=== PATIENT | male | born 1990 | race Caucasian/White ===

== ENCOUNTER 2017-04-24 08:15 | Day surgery (SDC) | payer BC ==
[2017-04-24] MEDS ORDERED: Lactated Ringer's 500 ML IV ONE (08:29)
[2017-04-24 08:38] VITALS: TEMP 97
[2017-04-24] MEDS ORDERED: Lidocaine PF 2% (5 ml) Inj (For Cardiac Arrhy) IV ONE (08:50)
[2017-04-24] MEDS ORDERED: Propofol 10 mg/ml Inj (20 ML) ONE (08:50)
[2017-04-24 09:29] VITALS: BP 104/72; PULSE 66; RESP 13; O2SAT 99
== END 2017-04-24 09:56 | disposition home or self-care (01) ==
LOC: H.ENDO 08:15 → EDSEX 08:15 → H.ENDO 09:56
PROVIDERS: ATTEND Internal Medicine Gastroenterology
DX: K29.50 Unspecified chronic gastritis without bleeding (principal); K44.9 Diaphragmatic hernia without obstruction or gangrene; R10.13 Epigastric pain
CPT/HCPCS: 43239; 88305; J2704; J7120

== ENCOUNTER 2017-09-02 20:53 | Emergency (ER) | payer BC ==
[2017-09-02 21:02] VITALS: TEMP 98.1
--- NOTE | 2017-09-02 23:42 | ED PDOC ---
HPI: Psych/Substance Abuse Time Seen by Provider: 09/02/17 21:13 Chief Complaint (Nursing): Alcohol Ingestion History Per: Patient Additional Complaint(s): 27 yo M presents for alcohol intoxication. Patient states that he was sitting in the stoop of his apartment building when he leaned over and fell hitting the L side of his head. He then called the ambulance because he felt like he was "too drunk." Denies any LOC, headache, neck pain, back pain, N/V, abdominal pain , feeling depressed, SI, HI. Has no other complaints. Past Medical History Vital Signs: Last Vital Signs Temp 98.1 F 09/02/17 20:58 Pulse 128 H 09/02/17 20:58 Resp 18 09/02/17 20:58 BP 146/97 H 09/02/17 20:58 Pulse Ox 98 09/02/17 20:58 - Medical History PMH: Kidney Stones - Family History Family History: States: No Known Family Hx - Home Medications Home Medications: Ambulatory Orders Medication Instructions Recorded No Known Home Med 04/24/17 - Allergies Allergies/Adverse Reactions: Allergies Allergy/AdvReac Type Severity Reaction Status Date / Time No Known Allergies Allergy Verified 04/24/17 08:35 Review of Systems Constitutional: Negative for: Fever, Malaise Cardiovascular: Negative for: Chest Pain, Palpitations Respiratory: Negative for: Cough, Shortness of Breath Gastrointestinal: Negative for: Vomiting, Diarrhea Skin: Positive for: Other (skin abrasion). Negative for: Rash Neurological: Negative for: Weakness, Numbness Physical Exam - Physical Exam Appears: Positive for: Well, Non-toxic, No Acute Distress Head Exam: Positive for: NORMOCEPHALIC (+2 cm dry healing abrasion to the L side of the forehead with no tenderness, no swelling) Skin: Positive for: Normal Color, Warm, DRY Eye Exam: Positive for: EOMI, Normal appearance, PERRL ENT: Positive for: Normal ENT Inspection Neck: Positive for: Normal, Painless ROM Cardiovascular/Chest: Positive for: Regular Rate, Rhythm Respiratory: Positive for: CNT, Normal Breath Sounds Gastrointestinal/Abdominal: Positive for: Normal Exam, Soft. Negative for: Tenderness Back: Positive for: Normal Inspection. Negative for: Vertebral Tenderness Extremity: Positive for: Normal ROM. Negative for: Tenderness, Deformity, Swelling Neurologic/Psych: Positive for: Alert, food service team member II-XII, Oriented (x3), Gait (steady) . Negative for: Motor/Sensory Deficits - ECG O2 Sat by Pulse Oximetry: 98 Medical Decision Making Medical Decision Making: Plan : - CT head - alcohol level Etoh : 359 CT head : FINDINGS: Brain: Normal. No hemorrhage. No significant white matter disease. No edema. Ventricles: Normal. No ventriculomegaly. Bones/joints: Normal. No acute fracture. Sinuses: Normal as visualized. No acute sinusitis. Mastoid air cells: Normal as visualized. No mastoid effusion. Soft tissues: Normal. IMPRESSION: No acute intracranial pathology. Dictated and Authenticated by: Liam Sharp MD 09/02/2017 11:35 PM Eastern Time ([place] & [place]) 00:00 On re-evaluation, patient remains AAOx3, in no acute distress. Speaking in full sentences, no tremors, ambulating with a steady gait. Patient is clinically sober, he states that he can fetch an uber and get home safely. VS T 98 P 86 BP 132/88. Diagnostic results d/w the patient in great detail. Patient is stable for d/c. Patient instructed to follow-up with pmd in 1-2 days without fail. Advised to drink plenty of water. Return to the emergency room at any time for any new or worsening symptoms. Patient escorted by solar fabrication technician to his uber ride home. Disposition - Clinical Impression Clinical Impression: Alcohol intoxication, Head injury - Patient ED Disposition Is Patient to be Admitted: No Counseled Patient/Family Regarding: Studies Performed, Diagnosis, Need For Followup - Disposition Referrals: FAMILY PROVIDER,NO [Primary Care Provider] - Disposition: Routine/Home Disposition Time: 00:00 Condition: STABLE Additional Instructions: Thank you for letting us take care of you today. You were treated for head injury, alcohol intoxication. The emergency medical care you received today was directed towards the acute presenting symptoms. Return to the Emergency Department at any time if symptoms worsen, do not improve, or if any other problems arise. Please contact your doctor in 2 days for re-evaluation and follow up. Bring any paperwork you were given at discharge with you along with any medications to your follow up visit. Our treatment cannot replace ongoing medical care by a primary care provider (PCP) outside of the emergency department. Thank you for allowing the [facility] team to be part of your care today. Instructions: Closed Head Injury, Alcohol Abuse and Alcoholism (DC) Forms: [employer] (Hebrew) - [place] / [place] RUNNER / Resident Statement MD/DO has reviewed & agrees with the documentation as recorded.
[2017-09-03 00:13] VITALS: BP 132/88; PULSE 86; RESP 16
[2017-09-03 02:19] VITALS: O2SAT 98
--- NOTE | 2017-09-03 12:53 | CT ---
Date of service: 09/02/2017 PROCEDURE: CT HEAD WITHOUT CONTRAST. HISTORY: fall COMPARISON: None available. TECHNIQUE: Axial computed tomography images were obtained through the head/brain without intravenous contrast. Radiation dose: Total exam DLP = 767 mGy-cm. This CT exam was performed using one or more of the following dose reduction techniques: Automated exposure control, adjustment of the mA and/or kV according to patient size, and/or use of iterative reconstruction technique. FINDINGS: HEMORRHAGE: No intracranial hemorrhage. BRAIN: No mass effect or edema. No atrophy or chronic microvascular ischemic changes. VENTRICLES: Unremarkable. No hydrocephalus. CALVARIUM: Unremarkable. PARANASAL SINUSES: Unremarkable as visualized. No significant inflammatory changes. MASTOID AIR CELLS: Unremarkable as visualized. No inflammatory changes. OTHER FINDINGS: The report concurs with the preliminary [facility] report IMPRESSION: No acute findings
== END 2017-09-03 00:13 | disposition home or self-care (01) ==
LOC: H.ER 20:53
DX: F10.129 Alcohol abuse with intoxication, unspecified (principal); S09.90XA Unspecified injury of head, initial encounter; W19.XXXA Unspecified fall, initial encounter; Y92.89 Other specified places as the place of occurrence of the external cause; Y90.8 Blood alcohol level of 240 mg/100 ml or more
CPT/HCPCS: 70450; 99282; G0480